=== PATIENT | female | born 1930 | race Caucasian/White ===

== ENCOUNTER 2018-03-13 10:32 | Emergency (ER) | payer MEDICARE, OTHER ==
[~2018-03-13] VITALS: Ht 162.6 cm; Wt 45.4 kg
[~2018-03-13 10:32] MED LIST: ACET325 PO; ALBU3IS INH; ALPR.25 PO; ASPI325 PO; LEVSOD25 PO; LORA.5 PO; MECL25 PO; Mucinex600 MG PO; Nitrostat0.4 MG SL; PRED20 PO; Prednisone20 MG PO; Zithromax250 MG PO
[2018-03-13] MEDS ORDERED: Prednisone20 MG PO (13:40)
== END 2018-03-13 13:59 | disposition home or self-care (01) ==
LOC: ER 10:32
DX: J44.1 Chronic obstructive pulmonary disease with (acute) exacerbation (principal); Z51.5 Encounter for palliative care; F41.9 Anxiety disorder, unspecified; F03.90 Unspecified dementia, unspecified severity, without behavioral disturbance, psychotic disturbance, mood disturbance, and anxiety; Z88.0 Allergy status to penicillin; Z87.891 Personal history of nicotine dependence; Z79.899 Other long term (current) drug therapy; Z79.51 Long term (current) use of inhaled steroids
CPT/HCPCS: 71045; 81000; 94640; 99283